=== PATIENT | male | born 1975 | race African-American/Black ===

== ENCOUNTER → 2017-09-26 | Outpatient (CLI) | payer OTHER | LOC: MHCPAIN 09:00 | DX: G89.29 Other chronic pain (principal); M47.817 Spondylosis without myelopathy or radiculopathy, lumbosacral region; M54.16 Radiculopathy, lumbar region; M53.3 Sacrococcygeal disorders, not elsewhere classified; M96.1 Postlaminectomy syndrome, not elsewhere classified | CPT/HCPCS: G0463 ==

== ENCOUNTER → 2017-11-06 | Outpatient (CLI) | payer OTHER | LOC: MHCPAIN 12:57 | DX: G89.29 Other chronic pain (principal); M47.27 Other spondylosis with radiculopathy, lumbosacral region; M96.1 Postlaminectomy syndrome, not elsewhere classified; M79.2 Neuralgia and neuritis, unspecified; F17.200 Nicotine dependence, unspecified, uncomplicated | CPT/HCPCS: G0463 ==

== ENCOUNTER 2020-12-29 09:20 | Outpatient (CLI) | payer OTHER ==
--- NOTE | 2020-10-14 15:28 | NUR ---
ATTEMPTED TO CALL TWICE, LINE RINGS BUSY
[~2020-12-29] VITALS: Ht 185.4 cm; Wt 106.0 kg
[2020-12-29] VITALS (7 sets, daily range): BP systolic 137–145; BP diastolic 94–106; PULSE 52–58
== END 2020-12-29 12:16 | disposition home or self-care (01) ==
LOC: COL.RAD 09:20
DX: G43.709 Chronic migraine without aura, not intractable, without status migrainosus (principal); M51.36 Other intervertebral disc degeneration, lumbar region; M48.061 Spinal stenosis, lumbar region without neurogenic claudication; G96.89 Other specified disorders of central nervous system; M79.604 Pain in right leg; M79.605 Pain in left leg
CPT/HCPCS: Q9965

== ENCOUNTER 2022-03-10 07:47 | Day surgery (SDC) | payer OTHER ==
[~2022-03-10] VITALS: Ht 182.9 cm; Wt 104.2 kg
[2022-03-10] MEDS ORDERED: NORVASC 10MG10 MG PO (09:05)
[2022-03-10] MEDS ORDERED: CRESTOR40 MG PO (09:06)
[2022-03-10 09:15] VITALS: BP 132/94; PULSE 58; TEMP 97.5
[2022-03-10 10:15] VITALS: BP 130/92; PULSE 64
== END 2022-03-10 11:12 ==
LOC: SDCO 07:47
DX: Z12.11 Encounter for screening for malignant neoplasm of colon (principal); Z86.010 Personal history of colon polyps
CPT/HCPCS: J2704; J7120